=== PATIENT | female | born 1975 | race Caucasian/White ===

== ENCOUNTER 2019-10-29 04:28 | Emergency (ER) | payer BC ==
[2019-10-29 12:05] VITALS: TEMP 98
[2019-10-29 12:07] VITALS: BP 127/57; O2SAT 97
== END 2019-10-29 06:06 | disposition home or self-care (01) ==
LOC: ER 04:28
DX: K20.9 Esophagitis, unspecified (principal)
CPT/HCPCS: 36415; 71045; 80048; 80076; 83735; 83880; 84484; 85025; 85610; 93005; 99285

== ENCOUNTER 2022-12-08 23:32 | Emergency (ER) | payer BC ==
--- OUTSIDE RECORDS SUMMARY | 2022-12-08 23:35 | XMS REPORT | Continuity of Care Document ---
:[address] [facility] t Address [address] [place] [id number] Care Team Providers Name Role Phone Unknown, Physician Primary Care Physician Unavailable Miguel Angel LANCASTER, Vandana Attending Clinician MONI MCGILL Attending Clinician Unavailable Doctor Unassigned, [place] Attending Clinician Unavailable Moni Mcgill MD Attending Clinician Payers Payer Name Policy Type Policy Number Effective Date Expiration Date [facility] - [id number] 2018 00:00:00 OUT OF STATE Problems Condition Condition Condition Status Onset Resolution Last Treating Co mments Source Name Details Category Date Date Treatment Clinician Date Hypothyroi Hypothyroi Disease Active U T dism dism 03-11 Health 00:00: 00 Allergies, Adverse Reactions, Alerts Allergy Allergy Status Severity Reaction(s) Onset Inactive Treating Comm ents Source Name Type Date Date Clinician NO KNOWN Drug Active Univers ALLERGIE Class ity of [facility] [place] [place] Social History Social Habit Start Date Stop Date Quantity Comments Source History of tobacco Cigarette Smoker [facility] use Tobacco use and 2022-03-11 2022-03-11 Smokeless tobacco [place] [facility] exposure 00:00:00 00:00:00 non-user Alcohol intake 2022-03-11 2022-03-11 Lifetime [facility] 00:00:00 00:00:00 non-drinker (finding) Sex Assigned At [birth year] [place] [facility] 00:00:00 00:00:00 Smoking Status Start Date Stop Date Source Unknown if ever smoked [facility] Ex-smoker 2022-03-11 00:00:00 2022-03-11 00:00:00 [facility] Medications Ordered Filled Start Stop Current Ordering Indication Dosage Frequency Signature Comments Components Source Medication Medication Date Date Medication? Clinician (SIG) Name Name levothyroxi Yes 175ug Take 175 U T ne 8-19 mcg by Health (Synthroid, 13:14: mouth 1 Levoxyl) 75 32 (one) time MCG tablet each day at the same time. levothyroxi 2018-07 Yes TAKE 1 Univ ers ne 137 mcg 2-06 TABLET BY ity of tablet 00:00: MOUTH ONCE [place] 00 DAILY FOR Medical 30 DAYS Branch levothyroxi 2018-07 Yes TAKE 1 Univ ers ne 137 mcg 2-06 TABLET BY ity of tablet 00:00: MOUTH ONCE [place] 00 DAILY FOR Medical 30 DAYS Branch levothyroxi 2018-07 Yes TAKE 1 Univ ers ne 137 mcg 2-06 TABLET BY ity of tablet 00:00: MOUTH ONCE [place] 00 DAILY FOR Medical 30 DAYS Branch levothyroxi 2018-07 Yes TAKE 1 Univ ers ne 137 mcg 2-06 TABLET BY ity of tablet 00:00: MOUTH ONCE [place] 00 DAILY FOR Medical 30 DAYS Branch levothyroxi 2018-07 Yes TAKE 1 Univ ers ne 137 mcg 2-06 TABLET BY ity of tablet 00:00: MOUTH ONCE [place] 00 DAILY FOR Medical 30 DAYS Branch levothyroxi 2018-07 Yes TAKE 1 Univ ers ne 137 mcg 2-06 TABLET BY ity of tablet 00:00: MOUTH ONCE [place] 00 DAILY FOR Medical 30 DAYS Branch Vital Signs Vital Name Observation Time Observation Value Comments Source Systolic blood 2022-03-11 16:44:00 133 mm[Hg] [facility] pressure Diastolic blood 2022-03-11 16:44:00 79 mm[Hg] [facility] pressure Heart rate 2022-03-11 16:44:00 96 /min [facility] Body temperature 2022-03-11 16:44:00 36.72 Catie [facility] Body height 2022-03-11 16:44:00 162.6 cm [facility] Body weight 2022-03-11 16:44:00 114.034 kg [facility] BMI 2022-03-11 16:44:00 43.15 kg/m2 [facility] Systolic blood 2019-08-26 21:04:00 121 mm[Hg] Univ sity of pressure [facility] Diastolic blood 2019-08-26 21:04:00 85 mm[Hg] Unive rsity of pressure [facility] Heart rate 2019-08-26 21:04:00 86 /min [facility] Respiratory rate 2019-08-26 21:04:00 16 /min Univ ersity [facility] Body height 2019-08-26 21:04:00 162.6 cm [facility] Body weight 2019-08-26 21:04:00 103.148 kg [facility] BMI 2019-08-26 21:04:00 39.03 kg/m2 [facility] Procedures Procedure Date / Time Performing Clinician Source Performed AUTHORIZATION FOR 2020-05-13 05:01:00 Doctor Unassigned, No [facility] EXTERNAL PROVIDER 2019-09-14 06:01:00 Doctor Unassigned, No [facility] [place] ASSIGNMENT OF BENEFITS 2019-08-26 20:48:54 Doctor Unassigned, No [facility] Encounters Start End Encounter Admission Attending Care Care Encounter Source Date/Time Date/Time Type Type Clinicians Facility Department ID 2022-03-11 2022-03-11 Office CHAYA Michelle [facility] [id number] [place] 11:00:00 13:21:33 Visit Vandana BOWERS [id number] [facility] [id number] [place] [id number] AND 4 WOMENS 2020-06-22 2020-06-22 Outpatient R KENNY [facility] [id number] Univers 08:30:00 08:30:00 MONI ity of [facility] 2020-05-13 2020-05-13 Orders Doctor TELLEZ [id number] Univers 00:00:00 00:00:00 Only Unassigned, AHYDEE [id number] ity of [place] [facility] [id number] Jai as [id number] [address] 2019-12-11 2019-12-11 Outpatient R [facility] [id number] Univers 08:15:00 08:15:00 ity of [facility] 2019-12-09 2019-12-09 Outpatient R KENNY [facility] [id number] Univers 13:30:00 13:30:00 MONI ity of [facility] 2019-12-09 2019-12-09 Telemedici Kenny [facility] [id number] Univers 08:05:34 08:35:34 ne Visit Moni Brar [id number] [id number] [phone] [address] 2019-09-14 2019-09-14 Orders Doctor GEOFF [id number] Univers 00:00:00 00:00:00 Only Unassigned, HAYDEE [id number] ity [facility] [place] [facility] [id number] Jai as [id number] [address] 2019-08-26 2019-08-26 [facility] [id number] Univers 14:52:44 16:02:34 Visit Moni Brar [id number] [id number] [phone] [address] 2019-08-26 2019-08-26 Orders Doctor GEOFF [id number] Univers 00:00:00 00:00:00 Only Unassigned, HAYDEE [id number] ity [facility] [place] [facility] [id number] Jai as [id number] [address] 2019-08-26 2019-08-26 Tele[facility] [id number] Univers 00:00:00 00:00:00 Moni Brar [id number] [id number] [phone] [address] Results This patient has no known results.
[2022-12-09] MEDS ORDERED: NA CHLORIDE 0.9% 1,000 ML ONE (00:28)
[2022-12-09] MEDS ORDERED: MORPHINE 4 MG/ML SYR ONE (00:28)
[2022-12-09] MEDS ORDERED: ONDANSETRON 4 MG/2 ML VIAL ONE (00:28)
[2022-12-09 01:05] LABS: Absolute Lymphocytes (CBC) 2.2 K/uL (0.7-4.9); Hematocrit 37.2 % (36.0-45.0); Lymphocytes % 33.2 % (15.3-44.8); MCV 81.6 fL (80-100); MPV 8.6 fL (7.6-11.3); RBC Red Blood Cell Count 4.56 M/uL (3.86-4.86)
[2022-12-09 01:12] LABS: Specific Gravity 1.031 (1.005-1.030)
[2022-12-09 01:13] LABS: Specific Gravity > 1.030 (1.005-1.030); Urine Bacteria None Seen /HPF (<20); Urine Bilirubin NEGATIVE (Negative); Urine Blood Negative (Negative); Urine Clarity Clear (Clear); Urine Color Light-Yellow (Yellow); Urine Glucose NEGATIVE (Negative); Urine Mucus Slight /HPF (None Seen); Urine Protein TRACE (Negative); Urine RBC None Seen /HPF (None Seen); Urine Urobilinogen Normal (Normal)
[2022-12-09 01:16] LABS: Albumin 3.3 g/dL (3.4-5.0); Bilirubin Total 0.2 mg/dL (0.2-1.0); Potassium 3.8 mEq/L (3.5-5.1); Protein, Total 8.1 g/dL (6.4-8.2)
--- NOTE | 2022-12-09 01:28 | ER ---
Nurse's Notes [facility] Name: Diane Barber Age: 46 yrs Sex: Female : 1975 Arrival Date: 12/08/2022 Time: 23:32 Bed 17 Private MD: Diagnosis: Upper abdominal pain, unspecified;Nausea Presentation: 12/08 23:46 Chief complaint: Patient states: RUQ pain that radiates to back with N/V/D x 1 month. vg1 Coronavirus screen: Vaccine status: Patient reports being unvaccinated. Client denies travel out of the [place] in the last 14 days. Ebola Screen: Patient negative for fever greater than or equal to 101.5 degrees Fahrenheit, and additional compatible Ebola Virus Disease symptoms Patient denies exposure to infectious person. Patient denies travel to an Ebola-affected area in the 21 days before illness onset. Initial Sepsis Screen: Does the patient meet any 2 criteria? No. Patient's initial sepsis screen is negative. Does the patient have a suspected source of infection? No. Patient's initial sepsis screen is negative. Risk Assessment: Do you want to hurt yourself or someone else? Patient reports no desire to harm self or others. Onset of symptoms was November 08, 2022. 23:46 Method Of Arrival: Ambulatory vg1 23:46 Acuity: PERICO 3 vg1 Triage Assessment: 23:48 General: Appears uncomfortable, Behavior is cooperative. Pain: Complains of pain in vg1 posterior aspect of right lateral abdomen and right upper quadrant Pain currently is 10 out of 10 on a pain scale. GI: Reports diarrhea, gaseousness, nausea, vomiting. 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 - Social history:: Smoking status: Patient/guardian denies using tobacco, the patient reports quitting approximately 2 years ago. Screenin/19 00:15 [facility] ED Fall Risk Assessment (Adult) History of falling in the last 3 months, lg3 including since admission No falls in past 3 months (0 pts). Abuse screen: Denies threats or abuse. Denies injuries from another. Nutritional screening: No deficits noted. Tuberculosis screening: No symptoms or risk factors identified. Assessment: 00:15 General: Appears in no apparent distress. uncomfortable, Behavior is calm, cooperative. lg3 Pain: Complains of pain in right upper quadrant Also complains of nausea. Neuro: No deficits noted. Pacheco Agitation-Sedation Scale (RASS): 0 - Alert and Calm Level of Consciousness is awake, alert, obeys commands, Oriented to person, place, time, situation. Cardiovascular: No deficits noted. Denies chest pain, shortness of breath, Capillary refill < 3 seconds Clubbing of nail beds is absent JVD is absent Patient's skin is warm and dry. Respiratory: No deficits noted. Airway is patent Respiratory effort is even, unlabored, Respiratory pattern is regular, symmetrical. GI: Abdomen is round non-distended, obese, Bowel sounds present X 4 quads. Abd is soft X 4 quads Abdomen is tender to palpation in right upper quadrant Reports upper abdominal pain, cramping, diarrhea, nausea, vomiting. : No deficits noted. No signs and/or symptoms were reported regarding the genitourinary system. EENT: No deficits noted. No signs and/or symptoms were reported regarding the EENT system. Derm: No deficits noted. No signs and/or symptoms reported regarding the dermatologic system. Skin is intact, is healthy with good turgor, Skin is dry, Skin is normal, Skin temperature is warm. Musculoskeletal: No deficits noted. No signs and/or symptoms reported regarding the musculoskeletal system. Circulation, motion, and sensation intact. Range of motion: intact in all extremities. 01:20 Reassessment: Patient appears in no apparent distress at this time. No changes from lg3 previously documented assessment. Patient and/or family updated on plan of care and expected duration. Pain level reassessed. Patient is alert, oriented x 3, equal unlabored respirations, skin warm/dry/pink. 02:00 Reassessment: Patient appears in no apparent distress at this time. No changes from lg3 previously documented assessment. Patient and/or family updated on plan of care and expected duration. Pain level reassessed. Patient is alert, oriented x 3, equal unlabored respirations, skin warm/dry/pink. Patient states symptoms have improved. Vital Signs: 12/08 23:46 BP 125 / 93; Pulse 78; Resp 16; Temp 98.5(TE); Pulse Ox 99% on R/A; Weight 116.12 kg; vg1 Height 5 ft. 4 in. ; Pain 10/10; 12/09 02:00 BP 126 / 88; Pulse 74; Resp 17 S; Pulse Ox 99% on R/A; lg3 12/08 23:46 Body Mass Index 43.94 (116.12 kg, 162.56 cm) vg1 12/08 23:46 Pain Scale: Adult vg1 ED Course: 12/08 23:36 Patient arrived in ED. ag3 23:48 Triage completed. vg1 23:48 Arm band placed on. vg1 23:51 Nate Preciado PA is PHCP. cp 23:51 Emilee Hartman MD is Attending Physician. cp 12/09 00:12 Chantell Dominguez, RN is Primary Nurse. lg3 00:15 Patient has correct armband on for positive identification. Placed in gown. Bed in low lg3 position. Call light in reach. Side rails up X 1. Client placed on continuous cardiac and pulse oximetry monitoring. NIBP monitoring applied. Door closed. Noise minimized. Warm blanket given. Family accompanied patient. 00:45 Inserted saline lock: 20 gauge in right antecubital area, using aseptic technique. lg3 Blood collected. 00:45 CBC with Diff Sent. lg3 00:45 CMP Sent. lg3 00:45 Lipase Sent. lg3 00:45 Test, Urine Sent. lg3 00:45 Urinalysis w/ reflexes Sent. lg3 00:51 Abdomen Limited US: gallbladder In Process Unspecified. EDMS 00:55 XRAY Chest (1 view) In Process Unspecified. EDMS 01:27 Sebastian Welsh MD is Referral Physician. cp 02:00 No provider procedures requiring assistance completed. IV discontinued, intact, lg3 bleeding controlled, No redness/swelling at site. Pressure dressing applied. Administered Medications: 00:45 Drug: NS 0.9% IV 1000 ml Route: IV; Rate: 500 ml/hr; Site: right antecubital; lg3 01:58 Follow up: Response: No adverse reaction; IV Status: Completed infusion; IV Intake: lg3 1000ml 00:45 Drug: Ondansetron IVP 4 mg Route: IVP; Site: right antecubital; lg3 01:59 Follow up: Response: No adverse reaction lg3 00:45 Drug: morphine IVP or IV 4 mg Route: IVP; Infused Over: 4 mins; Site: right antecubital;lg3 01:58 Follow up: Response: No adverse reaction lg3 01:58 Drug: GI Cocktail without - (Maalox PO Suspension 30 ml, Lidocaine Mucous lg3 Membrane Liquid 2 % 15 ml) Route: PO; 01:59 Follow up: Response: No adverse reaction lg3 Medication: 02:00 VIS not applicable for this client. lg3 Intake: 01:58 IV: 1000ml; Total: 1000ml. lg3 Outcome: 01:27 Discharge ordered by . patrice 02:00 Discharged to home ambulatory. lg3 02:00 Condition: stable 02:00 Discharge instructions given to patient, Instructed on discharge instructions, follow up and referral plans. medication usage, Demonstrated understanding of instructions, follow-up care, medications, Prescriptions given X 2. 02:00 Patient left the ED. lg3 Signatures: Dispatcher [employer] EDMS Nate Preciado PA PA cp Gomez, Alice ag3 Chantell Dominguez, RN RN lg3 Melissa Garcia RN RN vg1
--- NOTE | 2022-12-09 01:28 | EDPHYS ---
Physician Documentation [facility] Name: Diane Barber Age: 46 yrs Sex: Female : 1975 Arrival Date: 12/08/2022 Time: 23:32 Bed 17 Private MD: ED Physician Emilee Hartman HPI: 12/09 00:00 This 46 yrs old Female presents to ER via Ambulatory with complaints of Abdominal Pain. cp 00:00 The patient presents with abdominal pain in the right upper quadrant. Onset: The cp symptoms/episode began/occurred today. The symptoms radiate to right back. 00:00 Associated signs and symptoms: Pertinent positives: nausea and vomiting. cp 00:00 The symptoms are described as constant. Patient reports intermittent RUQ pain times 1 cp month. Pain today worse. 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 - Social history:: Smoking status: Patient/guardian denies using tobacco, the patient reports quitting approximately 2 years ago. ROS: 12/09 00:05 Constitutional: Negative for body aches, chills, fever, poor PO intake. cp 00:05 Eyes: Negative for injury, pain, redness, and discharge. cp 00:05 ENT: Negative for drainage from ear(s), ear pain, sore throat, difficulty swallowing, difficulty handling secretions. 00:05 Cardiovascular: Negative for chest pain, palpitations. 00:05 Respiratory: Negative for cough, shortness of breath, wheezing. 00:05 Abdomen/GI: Positive for abdominal pain, nausea, vomiting, of the right upper quadrant, Negative for diarrhea, constipation. 00:05 Back: Positive for radiated pain, of the right mid back. 00:05 : Negative for urinary symptoms. 00:05 Neuro: Negative for altered mental status, dizziness, headache, numbness, syncope, weakness. 00:05 All other systems are negative. Exam: 00:10 Constitutional: The patient appears in no acute distress, alert, awake, cp non-diaphoretic, non-toxic, well developed, well nourished, uncomfortable, overweight 00:10 Head/Face: Normocephalic, atraumatic. cp 00:10 Eyes: Periorbital structures: appear normal, Conjunctiva: normal, no exudate, no injection, Sclera: no appreciated abnormality, Lids and lashes: appear normal, bilaterally. 00:10 ENT: External ear(s): are unremarkable, Nose: is normal, Mouth: Lips: moist, Oral mucosa: pink and intact, moist, Posterior pharynx: is normal, airway is patent, no erythema, no exudate. 00:10 Chest/axilla: Inspection: normal. 00:10 Cardiovascular: Rate: normal, Rhythm: regular, Edema: is not appreciated, JVD: is not appreciated. 00:10 Respiratory: the patient does not display signs of respiratory distress, Respirations: normal, no use of accessory muscles, no retractions, labored breathing, is not present, Breath sounds: are clear throughout, no decreased breath sounds, no stridor, no wheezing. 00:10 Abdomen/GI: Inspection: obese Bowel sounds: active, all quadrants, Palpation: soft, in all quadrants, moderate abdominal tenderness, in the right upper quadrant, rebound tenderness, is not appreciated, voluntary guarding, is elicited in the right upper quadrant. 00:10 Back: pain, that is moderate, of the right mid back, ROM is normal. 00:10 Skin: no rash present. 00:10 Neuro: Orientation: to person, place \T\ time. Mentation: is normal, Motor: moves all fours, strength is normal. Vital Signs: 12/08 23:46 BP 125 / 93; Pulse 78; Resp 16; Temp 98.5(TE); Pulse Ox 99% on R/A; Weight 116.12 kg; vg1 Height 5 ft. 4 in. ; Pain 05/02; 12/09 02:00 BP 126 / 88; Pulse 74; Resp 17 S; Pulse Ox 99% on R/A; lg3 12/08 23:46 Body Mass Index 43.94 (116.12 kg, 162.56 cm) vg1 12/08 23:46 Pain Scale: Adult vg1 MDM: 12/08 23:51 Patient medically screened. cp 05/19 01:26 Data reviewed: vital signs, nurses notes, lab test result(s), radiologic studies, plain cp films, ultrasound. Differential diagnosis: appendicitis, cholecystitis, Cholelithiasis, non-specific abd cp pain, pancreatitis, Peptic Ulcer Disease, Perf. Duodenal Ulcer, Perf. Gastric Ulcer, Pyelonephritis, Ureterolithiasis, urinary tract infection. Consideration of Admission/Observation Escalation of care including admission/observation considered. I considered the following discharge prescriptions or medication management in the emergency department Medications were administered in the Emergency Department. See MAR. Test considered but Not performed: CT: abdomen/pelvis. Counseling: I had a detailed discussion with the patient and/or guardian regarding: the historical points, exam findings, and any diagnostic results supporting the discharge/admit diagnosis, lab results, radiology results, the need for outpatient follow up, a general surgeon. Response to treatment: the patient's symptoms have markedly improved after treatment, and as a result, I will discharge patient. 12/09 00:03 Order name: CBC with Diff; Complete Time: cp 12/09 01: Interpretation: Normal except: RDW 16.8. cp 12/09 00:03 Order name: CMP; Complete Time: cp 12/09 00: Interpretation: Normal except: CL 109; ANION GAP 3.8; GLUC 135; GFR 76; ALB 3.3; GLOB cp 4.8; A/G 0.7. 12/09 00:03 Order name: Lipase; Complete Time: cp 12/09 00:03 Order name: Test, Urine; Complete Time: cp 12/09 00:03 Order name: Urinalysis w/ reflexes; Complete Time: cp 12/09 00:21 Interpretation: Normal except: Urine SG > 1.030; UPROT TRACE. cp 12/09 00:03 Order name: Abdomen Limited US: gallbladder cp 12/09 00:03 Order name: XRAY Chest (1 view) cp 12/09 00:03 Order name: IV Saline Lock; Complete Time: 00:24 cp 12/09 00:03 Order name: Labs collected and sent; Complete Time: 00:24 cp 12/09 00:03 Order name: NPO; Complete Time: 00:45 cp 12/09 00:26 Order name: PO challenge; Complete Time: 01:58 cp Administered Medications: 00:45 Drug: NS 0.9% IV 1000 ml Route: IV; Rate: 500 ml/hr; Site: right antecubital; lg3 01:58 Follow up: Response: No adverse reaction; IV Status: Completed infusion; IV Intake: lg3 1000ml 00:45 Drug: Ondansetron IVP 4 mg Route: IVP; Site: right antecubital; lg3 01:59 Follow up: Response: No adverse reaction lg3 00:45 Drug: morphine IVP or IV 4 mg Route: IVP; Infused Over: 4 mins; Site: right antecubital;lg3 01:58 Follow up: Response: No adverse reaction lg3 01:58 Drug: GI Cocktail without - (Maalox PO Suspension 30 ml, Lidocaine Mucous lg3 Membrane Liquid 2 % 15 ml) Route: PO; 01:59 Follow up: Response: No adverse reaction lg3 Disposition Summary: 12/09/22 01:27 Discharge Ordered Location: Home cp Problem: new cp Symptoms: have improved cp Condition: Stable cp Diagnosis - Upper abdominal pain, unspecified cp - Nausea cp Followup: cp - With: Sebastian Welsh MD - When: 1 - 2 days - Reason: Recheck today's complaints Discharge Instructions: - Discharge Summary Sheet cp - Abdominal Pain, Adult cp - Biliary Colic, Adult cp - Nausea, Adult cp Forms: - Medication Reconciliation Form cp - Thank You Letter cp - Antibiotic Education cp - Prescription Opioid Use cp Prescriptions: - Zofran 4 mg Oral Tablet - take 1 tablet by ORAL route every 12 hours As needed; 20 tablet; Refills: 0, cp Product Selection Permitted - dicyclomine 20 mg Oral Tablet - take 1 tablet by ORAL route 4 times per day; 30 tablet; Refills: 0, Product cp Selection Permitted Signatures: Dispatcher [employer] Nate Rice PA PA cp Gibson, Lacie, RN RN lg3 Melissa Garcia RN RN vg1
[2022-12-09] MEDS ORDERED: LIDOCAINE VISCOUS 2% SOLN 15 ML UDC ONE (01:46)
[2022-12-09] MEDS ORDERED: MAGNES/ALUMIN/SIMET 30ML UCUP ONE (01:46)
--- NOTE | 2022-12-09 13:53 | RAD REPORT ---
EXAM DESCRIPTION: US - Abdomen Exam Limited - 12/09/2022 12:49 am CLINICAL HISTORY: ABD PAIN TECHNIQUE: Real-time ultrasound of the right upper quadrant with image documentation. COMPARISON: No relevant prior studies available. FINDINGS: Gallbladder: No demonstrable gallstones. Top normal gallbladder wall thickness. Trac e pericholecystic fluid. Common bile duct: Unremarkable as visualized. No stones. No dilation. IMPRESSION: No demonstrable gallstones. Top normal gallbladder wall thickness. Trace pericholecy stic fluid. Electronically signed by: Jeff Freire MD 12/09/2022 1:09 AM CDT Due to temporary technical issues with the PACS/Fluency reporting system, reports are being signed by the in house radiologists without review as a courtesy to insure prompt reporting. The interpreting radiologist is fully responsible for the content of the report.
--- NOTE | 2022-12-09 13:56 | RAD REPORT ---
EXAM DESCRIPTION: RAD - Chest Single View - 12/09/2022 12:54 am CLINICAL HISTORY: The patient is 46 years old and is Female; upper abdomen pain TECHNIQUE: Frontal view of the chest. COMPARISON: No relevant prior studies available. FINDINGS: Lungs: Mildly prominent interstitial markings. No consolidation. Pleural space: Unremarkable. No pneumothorax. Heart: Unremarkable. Mediastinum: Unremarkable. Bones/joints: Unremarkable. IMPRESSION: Mildly prominent interstitial markings. No consolidation. Electronically signed by: Evens Go MD 12/09/2022 1:06 AM CDT Due to temporary technical issues with the PACS/Fluency reporting system, reports are being signed by the in house radiologists without review as a courtesy to insure prompt reporting. The interpreting radiologist is fully responsible for the content of the report.
== END 2022-12-09 02:00 | disposition home or self-care (01) ==
LOC: ER 23:32
DX: R10.11 Right upper quadrant pain (principal); R11.0 Nausea
CPT/HCPCS: 96361; 85025; 81001; 36415; 81025; 83690; 80053; 71045; 76705; 96375; 96374; 99284; J2405; J7030